=== PATIENT | male | born 1955 | race African-American/Black ===

== ENCOUNTER 2018-12-13 16:26 | Inpatient (IN) | payer MEDICAID ==
[~2018-12-13] VITALS: Ht 177.8 cm; Wt 99.8 kg
[2018-12-13] MEDS ORDERED: SODIUM CHLORIDE 0.9% 1,000 ML IV ONE (17:41)
[2018-12-13 18:14] LABS: BASOPHILS % 0.5 % (0.0-2.0); EOSINOPHILS % 2.1 % (0.0-5.0); HEMATOCRIT. 33.4 % (42.0-52.0); HEMOGLOBIN. 11.1 g/dL (14.0-18.0); LYMPHOCYTES % 23.5 % (20.0-50.0); MEAN CORPUSCULAR HEMOGLOBIN 31.5 pg (28.0-32.0); MEAN CORPUSCULAR VOLUME 94.8 fL (80.0-94.0); MEAN PLATELET VOLUME 8.5 fl (7.4-10.4); MONOCYTES % 7.8 % (2.0-8.0); NEUTROPHILS % 66.1 % (40.0-76.0); PLATELET 197 x1000/uL (130-400); RED BLOOD CELL COUNT 3.52 mill/uL (4.7-6.1); RED CELL DISTRIBUTION WIDTH 13.4 % (11.6-14.6)
[2018-12-13 18:18] LABS: CHLORIDE 105 mEq/L (98-107)
[2018-12-13 18:46] LABS: INR 1.1
[2018-12-13] MEDS ORDERED: PANTOPRAZOLE SODIUM 40 MG/VIAL IV ONE (19:30)
[2018-12-13 23:30] VITALS: BP 136/85
[2018-12-13 23:31] VITALS: BP 136/85
[2018-12-13] MEDS ORDERED: HYDROCODONE/ACETAMINOPHEN 10/325MG TABLET PO PRN (23:45)
[2018-12-14] MEDS ORDERED: APIX5TAB PO (01:13)
[2018-12-14] MEDS ORDERED: CYCL10TA7 PO (01:22)
[2018-12-14] MEDS ORDERED: HYDR-4009 PO (01:22)
[2018-12-14] MEDS ORDERED: TAMS-11 PO (01:22)
[2018-12-14] MEDS ORDERED: ATOR20TA65 PO (01:22)
[2018-12-14] MEDS ORDERED: MELO-106 PO (01:22)
[2018-12-14] MEDS ORDERED: DULO60CA44 PO (01:22)
[2018-12-14] MEDS ORDERED: BENA20TA10 PO (01:22)
[2018-12-14] MEDS ORDERED: BACL-141 PO (01:22)
[2018-12-14 04:00] VITALS: BP 100/55
[2018-12-14] MEDS ORDERED: PANTOPRAZOLE 40MG DR TABLET PO SCH (07:40)
[2018-12-14] MEDS: DULOXETINE HCL 60MG DR CAPSULE PO SCH (08:03)
[2018-12-14] MEDS: BACLOFEN 10MG TABLET PO SCH (08:10)
[2018-12-14] MEDS: BENAZEPRIL 10MG TABLET PO SCH (08:10)
[2018-12-14 08:35] VITALS: BP 106/58
[2018-12-14 09:57] LABS: BASOPHILS % 0.4 % (0.0-2.0); EOSINOPHILS % 3.6 % (0.0-5.0); HEMATOCRIT. 30.2 % (42.0-52.0); HEMOGLOBIN. 10.8 g/dL (14.0-18.0); MEAN CORPUSCULAR HEMOGLOBIN 33.2 pg (28.0-32.0); MEAN CORPUSCULAR VOLUME 93.2 fL (80.0-94.0); MEAN PLATELET VOLUME 8.3 fl (7.4-10.4); MONOCYTES % 5.9 % (2.0-8.0); NEUTROPHILS % 56.1 % (40.0-76.0); PLATELET 199 x1000/uL (130-400); RED BLOOD CELL COUNT 3.24 mill/uL (4.7-6.1); RED CELL DISTRIBUTION WIDTH 13.4 % (11.6-14.6)
[2018-12-14 10:03] LABS: CHLORIDE 107 mEq/L (98-107)
[2018-12-14] MEDS ORDERED: POTASSIUM CHLORIDE 20MEQ TABLET SR PO SCH (11:45)
[2018-12-14] MEDS ORDERED: PNEUMOCOCCAL 23-VAL P-SAC VAC 0.5 ML IM ONE (12:00)
[2018-12-14 13:01] VITALS: BP 122/62
[2018-12-14 16:19] VITALS: BP 100/51
[2018-12-14 19:05] LABS: TOTAL IRON BINDING CAPACITY 274 ug/dL (250-450)
[2018-12-14 19:50] LABS: HEMATOCRIT 29.7 % (42.0-52.0)
[2018-12-14 20:00] VITALS: BP 126/69
[2018-12-14 20:14] LABS: FERRITIN 31 ng/mL (22-322); FOLIC ACID (FOLATE) SERUM >20 ng/mL ng/mL (>5.38)
[2018-12-14 20:26] LABS: VITAMIN B12 SERUM 1304 pg/mL (211-911)
[2018-12-14] MEDS: PANTOPRAZOLE SODIUM 40 MG/VIAL IV SCH (22:11)
[2018-12-14] MEDS ORDERED: ONDANSETRON HCL 4MG/2ML INJ IV PRN (23:45)
[2018-12-15] VITALS: BP 113/59
[2018-12-15 04:00] VITALS: BP 121/65
[2018-12-15 06:55] LABS: BASOPHILS % 0.3 % (0.0-2.0); EOSINOPHILS % 4.5 % (0.0-5.0); HEMOGLOBIN. 9.3 g/dL (14.0-18.0); LYMPHOCYTES % 35.4 % (20.0-50.0); MEAN CORPUSCULAR HEMOGLOBIN 31.8 pg (28.0-32.0); MEAN CORPUSCULAR VOLUME 92.8 fL (80.0-94.0); MEAN PLATELET VOLUME 8.7 fl (7.4-10.4); MONOCYTES % 7.4 % (2.0-8.0); NEUTROPHILS % 52.4 % (40.0-76.0); PLATELET 176 x1000/uL (130-400); RED BLOOD CELL COUNT 2.91 mill/uL (4.7-6.1); RED CELL DISTRIBUTION WIDTH 13.2 % (11.6-14.6)
[2018-12-15 07:01] LABS: PARTIAL THROMBOPLASTIN TIME 25.4 sec (23.4-31.0); PROTHROMBIN TIME 10.2 sec (9.6-11.0)
[2018-12-15 08:00] VITALS: BP 115/92
[2018-12-15 08:08] LABS: CHLORIDE 109 mEq/L (98-107)
[2018-12-15] MEDS: BENAZEPRIL 10MG TABLET PO SCH (09:00)
[2018-12-15] MEDS: BACLOFEN 10MG TABLET PO SCH (09:00)
[2018-12-15] MEDS: DULOXETINE HCL 60MG DR CAPSULE PO SCH (09:00)
[2018-12-15] MEDS: PANTOPRAZOLE SODIUM 40 MG/VIAL IV SCH (09:45)
[2018-12-15] MEDS ORDERED: SIMETHICONE 40 MG/0.6 ML 30ML ONE (14:33)
[2018-12-15] MEDS ORDERED: BACTERIOSTATIC SODIUM CHLORIDE 0.9% 30ML VIAL IJ ONE (14:33)
[2018-12-15] MEDS ORDERED: MIDAZOLAM HCL 5 MG/5 ML VIAL ONE (15:39)
[2018-12-15] MEDS ORDERED: FENTANYL CITRATE/PF 50MCG/ML 2ML VIAL ONE (15:39)
[2018-12-15] MEDS ORDERED: MIDAZOLAM HCL 5 MG/5 ML VIAL IV PRN (15:44)
[2018-12-15] MEDS ORDERED: FENTANYL CITRATE/PF 50MCG/ML 2ML VIAL IV PRN (15:45)
[2018-12-15] MEDS ORDERED: SUCRALFATE 1 G/10 ML UDC PO SCH (17:40)
[2018-12-15 18:06] VITALS: BP 120/74
[2018-12-16] MEDS ORDERED: OMEPRAZOLE 20MG CAPSULE EXTENDED RELEASE PO SCH (07:40)
== END 2018-12-15 19:35 | disposition home or self-care (01) | DRG 241 ==
LOC: ER 16:26 → 7WST 20:44 → EDBEDREQ 20:50 → EDBEDREQTM 20:50 → ENRESERV 22:12
PROVIDERS: ADMIT Internal Medicine; ATTEND Internal Medicine
PROC: 0DB78ZX Excision of Stomach, Pylorus, Via Natural or Artificial Opening Endoscopic, Diagnostic (ICD-10-PCS; principal; 2018-12-15)
DX: K25.4 Chronic or unspecified gastric ulcer with hemorrhage (principal); N17.0 Acute kidney failure with tubular necrosis; E87.6 Hypokalemia; G43.909 Migraine, unspecified, not intractable, without status migrainosus; I10 Essential (primary) hypertension; K29.61 Other gastritis with bleeding; G90.8 Other disorders of autonomic nervous system; D50.9 Iron deficiency anemia, unspecified; J45.909 Unspecified asthma, uncomplicated; K21.9 Gastro-esophageal reflux disease without esophagitis; Z90.49 Acquired absence of other specified parts of digestive tract; Z86.718 Personal history of other venous thrombosis and embolism; Z86.711 Personal history of pulmonary embolism; Z79.01 Long term (current) use of anticoagulants; Z90.89 Acquired absence of other organs; Z79.899 Other long term (current) drug therapy
CPT/HCPCS: 36415; 71045; 80048; 82270; 82607; 82728; 82746; 83540; 83550; 84484; 85014; 85018; 86677; 86850; 86900; 88305; 88313; 90732; 93005; 93970; 99285; C9113; J2250; J3010; J3490; J7030